=== PATIENT | male | born 1975 | race African-American/Black ===

== ENCOUNTER 2019-01-07 16:11 | Emergency (ER) | payer MEDICAID ==
[~2019-01-07] VITALS: Ht 185.4 cm; Wt 86.2 kg
[2019-01-07 16:26] VITALS: BP 116/67
[2019-01-07] MEDS ORDERED: CEFTRIAXONE 500 MG VIAL ONE (16:49)
[2019-01-07] MEDS ORDERED: AZITHROMYCIN 250 MG TABLET ONE (16:50)
[2019-01-07] MEDS ORDERED: LIDOCAINE /MPF 1% VIAL 5 ML VIAL ONE (16:50)
[2019-01-07] MEDS ORDERED: CEFTRIAXONE 1 G VIAL IM ONE (17:00)
[2019-01-07] MEDS ORDERED: AZITHROMYCIN 250 MG TABLET PO ONE (17:00)
== END 2019-01-07 17:10 | disposition home or self-care (01) ==
LOC: EDSEX 16:11 → ER 16:11
DX: Z20.2 Contact with and (suspected) exposure to infections with a predominantly sexual mode of transmission (principal); F12.10 Cannabis abuse, uncomplicated
CPT/HCPCS: 96372; 99283; J0696; J3490

== ENCOUNTER 2023-02-28 22:25 | Emergency (ER) | payer MEDICAID, OTHER ==
[~2023-02-28] VITALS: Ht 188 cm; Wt 99.8 kg
[2023-02-28] MEDS ORDERED: ACETAMINOPHEN ES 500 MG TABLET ONE (23:12)
[2023-02-28] MEDS ORDERED: ACETAMINOPHEN 325 MG TABLET PO ONE (23:30)
[2023-02-28] MEDS ORDERED: TYL2T PO (23:50)
[2023-02-28 23:56] VITALS: BP 130/65; TEMP 98; O2SAT 98
== END 2023-02-28 23:57 ==
LOC: ER 22:28
DX: S89.92XA Unspecified injury of left lower leg, initial encounter (principal); W50.0XXA Accidental hit or strike by another person, initial encounter; Y93.89 Activity, other specified; Y92.89 Other specified places as the place of occurrence of the external cause; Y99.8 Other external cause status
CPT/HCPCS: 73564-TC